=== PATIENT | female | born 1965 | race American Indian/Alaskan Native ===

== ENCOUNTER 2018-11-27 17:12 | Emergency (ER) | payer BC ==
--- NOTE | 2018-11-27 17:32 | C.PDOC ---
Time Seen by Provider: 11/27/18 17:23
[2018-11-27 17:52] VITALS: TEMP 98.5; O2SAT 99
--- NOTE | 2018-11-27 18:10 | C.PDOC ---
History Of Present Illness 53 year old female with a history of HTN, emergency department employee, complains of possible abscess of right mid-back which started 6 days ago. Patient reports that her symptoms began as a linear, erythematous, tender area on the right mid-back. Patient reports noting 2 vesicles to the area. Patient was started on Famicyclovir 500mg TID, which she has been compliant with. Patient is currently complaining of burning sensation with mild itching of the area. Patient reports that her pain radiates to the right lower chest wall. She also reports taking 800mg Motrin and Tylenol for pain. She denies fever, chills, nausea, vomiting, abdominal pain, and urinary symptoms. Patient has a PSHx of hysterectomy and partial thyroidectomy. Patient denies smoking, drinking, or any allergies. <Norma Parra - Last Filed: 11/27/18 18:54> History Per: Patient History/Exam Limitations: no limitations Onset/Duration Of Symptoms: Days (6) Current Symptoms Are (Timing): Still Present Location Of Injury: Right: Back, Posterior: Back Quality Of Symptoms: Painful, Itching <Norma Parra - Last Filed: 11/27/18 18:54> <Filiberto Smith - Last Filed: 11/27/18 22:51> Time Seen by Provider: 11/27/18 17:23 Chief Complaint (Nursing): Abnormal Skin Integrity Past Medical History Reviewed: Historical Data, Nursing Documentation, Vital Signs Vital Signs: Last Vital Signs Temp 98.5 F 11/27/18 17:48 Pulse 85 11/27/18 17:48 Resp 18 11/27/18 17:48 BP 154/87 H 11/27/18 17:48 Pulse Ox 99 11/27/18 17:48 - Medical History PMH: HTN Other Surgeries: Hysterectomy, thyroidectomy - Social History Hx Tobacco Use: No Hx Alcohol Use: Yes Hx Substance Use: No - Immunization History Hx Tetanus Toxoid Vaccination: Yes Hx Influenza Vaccination: Yes Hx Pneumococcal Vaccination: No <Norma Parra - Last Filed: 11/27/18 18:54> Vital Signs: Last Vital Signs Temp 98.5 F 11/27/18 17:48 Pulse 85 11/27/18 17:48 Resp 18 11/27/18 17:48 BP 154/87 H 11/27/18 17:48 Pulse Ox 99 11/27/18 18:55 Family History: States: No Known Family Hx <Filiberto Smith - Last Filed: 11/27/18 22:51> Review Of Systems Except As Marked, All Systems Reviewed And Found Negative. Constitutional: Negative for: Fever, Chills Gastrointestinal: Negative for: Nausea, Vomiting, Abdominal Pain Genitourinary: Negative for: Dysuria, Frequency, Incontinence Skin: Positive for: Other (erythema, abscess, burning sensation, itching) <Norma Parra Last Filed: 11/27/18 18:54> Physical Exam - Physical Exam Appears: Non-toxic, No Acute Distress Skin: Warm, Dry, Other (large, indurated, erythematous area to the right paraspinal area with positive tenderness. No streaking, no fluctuance. 3 vesicles overlying the induration. ) Head: Atraumatic, Normacephalic Eye(s): bilateral: Normal Inspection, PERRL, EOMI Oral Mucosa: Moist Neck: Normal, Supple Chest: Symmetrical, No Tenderness Cardiovascular: Rhythm Regular, No Murmur Respiratory: Normal Breath Sounds, No Rales, No Rhonchi, No Wheezing Gastrointestinal/Abdominal: Soft, No Tenderness Neurological/Psych: Oriented x3, Normal Speech, Normal Cognition Gait: Steady <Norma Parra Last Filed: 11/27/18 18:54> ED Course And Treatment O2 Sat by Pulse Oximetry: 99 (RA) Pulse Ox Interpretation: Normal Progress Note: Plan: US Head/Neck Soft Tissue <Norma Parra Last Filed: 11/27/18 18:54> Medical Decision Making Medical Decision Making: Signed out at change of shift pending US. US returned via [facility] rad as finding of heterogenous area with edema consistent with abscess. Area appears indurated, erythematous, swollen without fluctuance. Discussed case with Dr. Natacha MILLER who recommends continuing course of antiviral as valtrex, Augmentin for superinfection, pain control. Will follow up official US read in AM. Patient's pain worsened. Tramdol administered. [employer] registry checked, no previous records. Prescription provided. <LuisFiliberto Robertson - Last Filed: 11/27/18 22:51> Disposition - Disposition Disposition Time: 19:00 <Norma Parra Last Filed: 11/27/18 18:54> Discussed With : Cole Manzano <Filiberto Smith - Last Filed: 11/27/18 22:51> - Disposition Referrals: Cole Manzano MD [Staff Provider] - Disposition: HOME/ ROUTINE Condition: FAIR Prescriptions: Amoxicillin/Clavulanate [Augmentin 875 MG-125 MG] 1 tab PO BID #20 tab RX: traMADol [Ultram] 1 tab PO Q6H #20 tab Valacyclovir HCl [Valtrex] 1 gm PO Q8H #12 tablet Instructions: Shingles, Cellulitis (Skin Infection), Adult (DC) Forms: [employer] (Persian) - Clinical Impression Clinical Impression: Cellulitis, Shingles - Scribe Statement The provider has reviewed the documentation as recorded by the Scribe (Sony Leon) Provider Attestation: All medical record entries made by the Scribe were at my direction and personally dictated by me. I have reviewed the chart and agree that the record accurately reflects my personal performance of the history, physical exam, medical decision making, and the department course for this patient. I have also personally directed, reviewed, and agree with the discharge instructions and disposition. <Norma Parra - Last Filed: 11/27/18 18:54> Physician Patient Turnover Patient Signed Over To: Filiberto Smith Handoff Comments: RICHARD VERDUGO, DISPO <Norma Parra - Last Filed: 11/27/18 18:54>
[2018-11-27] MEDS ORDERED: Amoxicillin-Clav 875-125 mg Tab PO STA (18:55)
[2018-11-27] MEDS ORDERED: Amoxicillin-Clav 875-125 mg Tab PO ONE (20:07)
[2018-11-27] MEDS ORDERED: Tramadol 25 mg PO STA (21:48)
[2018-11-27] MEDS ORDERED: Tramadol 25 mg ONE (21:57)
[2018-11-27 22:02] VITALS: BP 151/85; PULSE 73; RESP 16
--- NOTE | 2018-11-28 16:06 | US ---
Date of service: 11/27/2018 PROCEDURE: Ultrasound soft tissue limited HISTORY: PAIN SWELLING R/O ABSCESS COMPARISON: None available TECHNIQUE: Targeted ultrasound examination of the right mid back was performed for evaluation of possible abscess. The examination was performed utilizing a high-frequency linear array transducer. FINDINGS: Evaluation of the region of concern demonstrates subcutaneous edema without evidence of discrete collection or mass. IMPRESSION: No evidence of abscess. The preliminary findings for this examination were reported by [facility] at 8:38 p.m. on 11/27/2018. There is discordance of this report with the preliminary findings. No discrete collection is demonstrated sonographically.
== END 2018-11-27 22:01 | disposition home or self-care (01) ==
LOC: C.ER 17:12
DX: L03.312 Cellulitis of back [any part except buttock and flank] (principal); B02.9 Zoster without complications